=== PATIENT | male | born 1975 | race Two or more races ===

== ENCOUNTER → 2018-12-14 | Emergency (ER) | payer OTHER | END | disposition left against medical advice (07) | LOC: ER 11:18 | DX: Z53.20 Procedure and treatment not carried out because of patient's decision for unspecified reasons (principal) ==

== ENCOUNTER 2018-12-15 09:49 | Emergency (ER) | payer OTHER ==
[~2018-12-15] VITALS: Ht 165.1 cm; Wt 82.1 kg
== END 2018-12-15 12:27 | disposition home or self-care (01) ==
LOC: ER 09:49
DX: M25.571 Pain in right ankle and joints of right foot (principal); S96.811S Strain of other specified muscles and tendons at ankle and foot level, right foot, sequela; X50.0XXS Overexertion from strenuous movement or load, sequela